=== PATIENT | female | born 1940 | race Caucasian/White ===

== ENCOUNTER → 2018-07-28 | Emergency (ER) | payer MEDICARE, OTHER | LOC: ED 23:47 ==

== ENCOUNTER 2019-04-01 14:51 | Emergency (ER) | payer MEDICARE, OTHER ==
[2019-04-01] MEDS ORDERED: BABY ASPIRIN 81 MG CHEW PO ONE (15:11)
[2019-04-01] MEDS ORDERED: Nitrostat 0.4 MG (ED) SL ONE (15:11)
[2019-04-01] MEDS ORDERED: DUONEB 0.5-3 MG/3 ml Neb IH ONE ×2 (15:17→15:31)
--- NOTE | 2019-04-01 15:18 | ERPHSYRPT ---
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 pt arrives pale, w/d resp easy a@ox3. Physician History: Pt is here with c/c of chest pain that migrated to the mid-epigastric region of the abdomen then to the RUQ. Pt took some tums and anothr stomach med but it did not help. Pt notes that the pain started today and she became weak and then was near syncopal when standing to go to Radiology. Pt rates her pain as moderate and notes that it started 1 hour after she had eaten. Timing/Duration: today Activities at Onset: other (had just eaten) Quality: aching, pressure, tightness Location: epigastric, abdomen Severity of Pain-Max: moderate Severity of Pain-Current: moderate Modifying Factors: Improves With: antacids Associated Symptoms: nausea, abdominal pain, syncope, No shortness of breath, No edema Prior Chest Pain/Cardiac Workup: no prior chest pain Nitro Today/Relief: no nitro taken today Aspirin Treatment Today: no aspirin today Allergies/Adverse Reactions: rosuvastatin [From Crestor] Allergy (Verified 04/01/19 15:14) rivaroxaban [From Xarelto] Adverse Reaction (Verified 04/01/19 15:14) Home Medications: Amlodipine Besylate 2.5 mg PO BID 04/01/19 [History] Apixaban [Eliquis 2.5 mg Tablet] 2.5 mg PO BID 04/01/19 [History] Atorvastatin Calcium 10 mg PO DAILY 04/01/19 [History] Metoprolol Succinate 25 mg Xl* [Toprol-Xl 25MG Tablets] 25 mg PO DAILY [History] Omeprazole 20 mg PO DAILY 04/01/19 [History] Sertraline HCl 50 mg [Zoloft 50 mg Tablet] 50 mg PO DAILY 04/01/19 [History] Hx Influenza Vaccination/Date Given: Yes (03/31) Hx Pneumococcal Vaccination/Date Given: (03/31) Immunizations Up to Date: Yes - Review of Systems Constitutional: Weakness Eyes: No Symptoms Ears, Nose, & Throat: No Symptoms Respiratory: No Symptoms Cardiac: Chest Pain, No Palpitations Abdominal/Gastrointestinal: Abdominal Pain, Nausea, No Vomiting, No Diarrhea Genitourinary Symptoms: No Symptoms, No Dysuria Musculoskeletal: No Symptoms Skin: No Symptoms Neurological: No Symptoms Psychological: No Symptoms Endocrine: No Symptoms Immunological/Allergic: No Symptoms - Past Medical History Pertinent Past Medical History: No Neurological History: No Pertinent History ENT History: No Pertinent History Cardiac History: High Cholesterol, Other Respiratory History: Asthma, COPD, Pulmonary Embolism Endocrine Medical History: No Pertinent History Musculoskeletal History: Osteoporosis GI Medical History: No Pertinent History History: No Pertinent History Psycho-Social History: Anxiety Other Medical History: 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 wright, leaky heart valve - Past Surgical History Past Surgical History: Yes Neuro Surgical History: No Pertinent History Cardiac: No Pertinent History Respiratory: No Pertinent History Gastrointestinal: Hernia Repair Genitourinary: No Pertinent History Musculoskeletal: No Pertinent History Female Surgical History: Hysterectomy Other Surgical History: Bladder tack, lumps removed from right breast benign - Social History Smoking Status: Never smoker Exposure to second hand smoke: No Drug Use: none Patient Lives Alone: No - Nursing Vital Signs Nursing Vital Signs: Initial Vital Signs Pulse Rate 66 04/01/19 14:58 Respiratory Rate 16 04/01/19 14:58 Blood Pressure 158/91 04/01/19 14:58 O2 Sat by Pulse Oximetry 97 04/01/19 14:58 Pain Scale Pain Intensity 5 - Physical Exam General Appearance: no apparent distress, lethargy Eye Exam: PERRL/EOMI, No scleral icterus Ears, Nose, Throat Exam: normal ENT inspection, TMs normal, pharynx normal, moist mucous membranes Neck Exam: normal inspection, supple, No carotid bruit Respiratory Exam: normal breath sounds, lungs clear, airway intact, No chest tenderness, No diminished breath sounds Cardiovascular Exam: regular rate/rhythm, normal heart sounds, No murmur, No friction rub, No gallop Gastrointestinal/Abdomen Exam: soft, normal bowel sounds, tenderness (mild RUQ) Pelvic Exam: not done Rectal Exam: not done Back Exam: normal inspection Extremity Exam: normal inspection, normal range of motion, pelvis stable Neurologic Exam: alert, oriented x 3, cooperative, patient day coordinator II-XII nml as tested, normal mood/affect Skin Exam: normal color, warm, dry, No rash SpO2: 97 O2 Delivery: Room Air - Course EKG Interpreted by Me: RATE (59), Sinus Rhythm, NORMAL AXIS, Non-specific ST Changes Ordered Tests: Active Orders 24 hr Category Date Time Status Graphic Editor STAT Care 04/01/19 15:13 Active EKG-ER Only STAT Care 04/01/19 15:11 Active CHEST 2 VIEWS (PA AND LAT) Stat Exams 04/01/19 15:13 Completed CHEST WITH CONTRAST [CT] Stat Exams 04/01/19 19:02 Taken GALLBLADDER [US] Stat Exams 04/01/19 16:25 Completed CBC W DIFF Stat Lab 04/01/19 15:10 Completed CK-Creatinine Phosphokinase Stat Lab 04/01/19 15:10 Completed CMP Stat Lab 04/01/19 15:10 Completed D-DIMER QUANTITATION Stat Lab 04/01/19 15:10 Completed NT PRO BNP Stat Lab 04/01/19 15:10 Completed PROTIME WITH INR Stat Lab 04/01/19 15:10 Completed PTT Stat Lab 04/01/19 15:10 Completed TROPONIN Q3H Lab 04/01/19 15:10 Completed TROPONIN Q3H Lab 04/01/19 18:15 Completed TROPONIN Q3H Lab 04/01/19 21:15 Ordered TROPONIN Q3H Lab 04/02/19 00:15 Ordered TROPONIN Q3H Lab 04/02/19 03:15 Ordered Respiratory Therapy Assessment DAILY RT 04/02/19 15:33 Active Medication Summary Discontinued Medications Generic Name Dose Route Start Last Admin Trade Name Freq PRN Reason Stop Dose Admin Albuterol/Ipratropium 3 ml 04/01/19 15:17 04/01/19 15:37 Duoneb 0.5-3 Mg/3 Ml Neb IH 04/01/19 15:18 3 ml STAT ONE Administration Albuterol/Ipratropium Confirm 04/01/19 15:31 Duoneb 0.5-3 Mg/3 Ml Neb Administered 04/01/19 15:32 Dose 3 ml IH .STK-MED ONE Aspirin 324 mg 04/01/19 15:11 04/01/19 15:20 Baby Aspirin 81 Mg Chew PO 04/01/19 15:12 324 mg STAT ONE Administration Hydromorphone HCl 0.5 mg 04/01/19 20:12 Hydromorphone 1 Mg/Ml Ampule IV 04/01/19 20:13 STAT ONE Nitroglycerin 0.4 mg 04/01/19 15:11 04/01/19 15:21 Nitrostat 0.4 Mg (Ed) SL 04/01/19 15:12 0.4 mg STAT ONE Administration Ondansetron HCl 4 mg 04/01/19 16:25 04/01/19 16:26 Zofran 4 Mg/2 Ml Vial IV 04/01/19 16:26 4 mg STAT ONE Administration Ondansetron HCl Confirm 04/01/19 16:25 Zofran 4 Mg/2 Ml Vial Administered 04/01/19 16:26 Dose 4 mg .ROUTE .STK-MED ONE Pantoprazole Sodium 40 mg 04/01/19 19:19 04/01/19 19:27 Protonix 40 Mg Iv IV 04/01/19 19:20 40 mg STAT ONE Administration Pantoprazole Sodium Confirm 04/01/19 19:24 Protonix 40 Mg Iv Administered 04/01/19 19:25 Dose 40 mg IV .STK-MED ONE Prochlorperazine Edisylate 10 mg 04/01/19 17:18 04/01/19 17:24 Compazine 10 Mg/2 Ml IV 04/01/19 17:19 10 mg STAT ONE Administration Prochlorperazine Edisylate Confirm 04/01/19 17:23 Compazine 10 Mg/2 Ml Administered 04/01/19 17:24 Dose 10 mg .ROUTE .STK-MED ONE Lab/Rad Data: Laboratory Result Diagrams 04/01/19 15:10 04/01/19 15:10 Laboratory Results 04/01/19 04/01/19 04/01/19 Range/Units 18:15 15:10 15:10 WBC (4.0-10.5) K/mm3 RBC (4.1-5.4) M/mm3 Hgb (12.0-16.0) gm/dl Hct (35-47) % MCV (78-100) fl MCH (26-32) pg MCHC (32-36) g/dl RDW (11.5-14.0) % Plt Count (150-450) K/mm3 MPV (6-9.5) fl Gran % (36.0-66.0) % Eos # (Auto) (0-0.5) Absolute Lymphs (auto) (1.0-4.6) Absolute Monos (auto) (0.0-1.3) Lymphocytes % (24.0-44.0) % Monocytes % (0.0-12.0) % Eosinophils % (0.00-5.0) % Basophils % (0.0-0.4) % Absolute Granulocytes (1.4-6.9) Basophils # (0-0.4) PT 13.5 H (9.95-12.35) SECONDS INR 1.19 (0.8-3.0) APTT 30.7 (25.3-37.0) SECONDS D-Dimer 531 H* (215-500) ng/mL Sodium (137-145) mmol/L Potassium (3.5-5.1) mmol/L Chloride (98-107) mmol/L Carbon Dioxide (22-30) mmol/L Anion Gap (5-15) MEQ/L BUN (7-17) mg/dL Creatinine (0.52-1.04) mg/dL Estimated GFR ML/MIN Glucose (74-106) mg/dL Calcium (8.4-10.2) mg/dL Total Bilirubin (0.2-1.3) mg/dL AST (14-36) U/L ALT (0-35) U/L Alkaline Phosphatase (38-126) U/L Creatine Kinase (30-135) U/L Troponin I < 0.012 < 0.012 (0.000-0.034) ng/mL NT-Pro-B Natriuret Pep (0-1800) pg/mL Serum Total Protein (6.3-8.2) g/dL Albumin (3.5-5.0) g/dL 04/01/19 04/01/19 Range/Units 15:10 15:10 WBC 13.5 H (4.0-10.5) K/mm3 RBC 4.36 (4.1-5.4) M/mm3 Hgb 13.8 (12.0-16.0) gm/dl Hct 41.7 (35-47) % MCV 95.6 (78-100) fl MCH 31.7 (26-32) pg MCHC 33.1 (32-36) g/dl RDW 12.8 (11.5-14.0) % Plt Count 258 (150-450) K/mm3 MPV 11.3 H (6-9.5) fl Gran % 84.8 H (36.0-66.0) % Eos # (Auto) 0.11 (0-0.5) Absolute Lymphs (auto) 1.34 (1.0-4.6) Absolute Monos (auto) 0.60 (0.0-1.3) Lymphocytes % 9.9 L (24.0-44.0) % Monocytes % 4.4 (0.0-12.0) % Eosinophils % 0.8 (0.00-5.0) % Basophils % 0.1 (0.0-0.4) % Absolute Granulocytes 11.44 H (1.4-6.9) Basophils # 0.01 (0-0.4) PT (9.95-12.35) SECONDS INR (0.8-3.0) APTT (25.3-37.0) SECONDS D-Dimer (215-500) ng/mL Sodium 142 (137-145) mmol/L Potassium 4.3 (3.5-5.1) mmol/L Chloride 106 (98-107) mmol/L Carbon Dioxide 28 (22-30) mmol/L Anion Gap 11.7 (5-15) MEQ/L BUN 18 H (7-17) mg/dL Creatinine 0.81 (0.52-1.04) mg/dL Estimated GFR > 60.0 ML/MIN Glucose 139 H (74-106) mg/dL Calcium 9.7 (8.4-10.2) mg/dL Total Bilirubin 0.70 (0.2-1.3) mg/dL AST 188 H (14-36) U/L ALT 74 H (0-35) U/L Alkaline Phosphatase 125 (38-126) U/L Creatine Kinase 64 (30-135) U/L Troponin I (0.000-0.034) ng/mL NT-Pro-B Natriuret Pep 183 (0-1800) pg/mL Serum Total Protein 6.6 (6.3-8.2) g/dL Albumin 4.1 (3.5-5.0) g/dL - Departure Departure Disposition: Transfer Clinical Impression: Choledocholithiasis, Chest pain, Elevated d-dimer Condition: Stable Critical Care Time: No Referrals: GREGOR BRAGG [Primary Care Provider] - Additional Instructions: Transfer to [facility] - Direct admission to the care of Summer Bragg.
[2019-04-01 15:26] LABS: Absolute Neutrophil Ct (ANC) 11.44 (1.4-6.9); BASOPHIL % 0.1 % (0.0-0.4); Basophil (Absolute #) 0.01 (0-0.4); Eosinophil % 0.8 % (0.00-5.0); Eosinophil (Absolute #) 0.11 (0-0.5); Hematocrit 41.7 % (35-47); Hemoglobin 13.8 gm/dl (12.0-16.0); Lymphocyte (Absolute #) 1.34 (1.0-4.6); Lymphocytes % 9.9 % (24.0-44.0); Mean Cell Volume 95.6 fl (78-100); Mean Corpuscular Hemoglobin 31.7 pg (26-32); Mean Corpuscular Hgb Concent. 33.1 g/dl (32-36); Mean Platelet Volume 11.3 fl (6-9.5); Monocytes % 4.4 % (0.0-12.0); Neutrophil % 84.8 % (36.0-66.0); Platelet Count 258 K/mm3 (150-450); Red Blood Count 4.36 M/mm3 (4.1-5.4); Red Cell Distribution Width 12.8 % (11.5-14.0); White Blood Count 13.5 K/mm3 (4.0-10.5)
[2019-04-01 15:48] LABS: INR 1.19 (0.8-3.0); PROTIME 13.5 SECONDS (9.95-12.35)
[2019-04-01 15:49] LABS: ALBUMIN 4.1 g/dL (3.5-5.0); ALKALINE PHOSPHATASE 125 U/L (38-126); ANION GAP 11.7 MEQ/L (5-15); BLOOD UREA NITROGEN 18 mg/dL (7-17); CHLORIDE 106 mmol/L (98-107); CK-Creatinine Phosphokinase 64 U/L (30-135); Calcium 9.7 mg/dL (8.4-10.2); Carbon Dioxide 28 mmol/L (22-30); Creatinine 1 0.81 mg/dL (0.52-1.04); Glucose 139 mg/dL (74-106); NT PRO BNP 183 pg/mL (0-1800); Potassium 4.3 mmol/L (3.5-5.1); SGOT/AST 188 U/L (14-36); SGPT/ALT 74 U/L (0-35); SODIUM 142 mmol/L (137-145); Total Protein 6.6 g/dL (6.3-8.2)
[2019-04-01 15:51] LABS: PTT 30.7 SECONDS (25.3-37.0)
--- NOTE | 2019-04-01 16:23 | XRAY ---
Indication: Lower chest pain and pressure. Short of breath. Comparison: August 06, 2013. PA/lateral chest remains clear. Heart and mediastinal structures within normal limits. Bony thorax intact again with mild osteopenia and degenerative changes. Impression: Stable nonacute chest with chronic bony features.
[2019-04-01] MEDS ORDERED: Zofran 4 MG/2 ML VIAL ONE (16:25)
[2019-04-01] MEDS ORDERED: Zofran 4 MG/2 ML VIAL IV ONE (16:25)
--- NOTE | 2019-04-01 16:35 | XRAY ---
Indication: Abdomen pain. Two-dimensional gallbladder sonogram performed. Comparison: None Gallbladder is mildly distended without gallstones, wall thickening, or pericholecystic fluid. Common bile duct measures 3.4 mm. No intrahepatic biliary distention. Remaining visualized liver, pancreas, and right kidney appear sonographically unremarkable. No organomegaly or ascites. Right kidney measures 8 cm in length. Impression: Mildly distended gallbladder in a otherwise negative gallbladder sonogram.
[2019-04-01] MEDS ORDERED: Compazine 10 MG/2 ML IV ONE (17:18)
[2019-04-01] MEDS ORDERED: Compazine 10 MG/2 ML ONE (17:23)
[2019-04-01] MEDS ORDERED: PROTONIX 40 MG IV IV ONE ×2 (19:19→19:24)
[2019-04-01] MEDS ORDERED: Hydromorphone 1 mg/ml Ampule IV ONE (20:12)
[2019-04-01] MEDS ORDERED: Hydromorphone 1 mg/ml Ampule ONE (20:55)
[2019-04-01 21:23] VITALS: BP 148/75; PULSE 74; O2SAT 95
--- NOTE | 2019-04-02 08:52 | XRAY ---
Indication: Upper abdomen and flank pain. Elevated d-dimer. Multiple contiguous axial images obtained through the chest using 80 cc Isovue 370 contrast and PE protocol. Comparison: None There is good opacification of the pulmonary arteries. However mild respiration artifact limits evaluation of the more distal lobar and segmental branches. No obvious pulmonary embolus. Heart is not enlarged. Aorta is normal in course and caliber. No pathologic mediastinal/hilar lymphadenopathy. Moderate-sized hiatal hernia. Examination of the lung parenchyma demonstrates bilateral scattered fibrosis/scarring. Right upper lobe demonstrates 1 cm apical and 4 mm peripheral indeterminant noncalcified nodules. No infiltrate or effusion. Bony thorax intact with mild osteopenia and mild degenerative changes of the lower thoracic spine. Limited upper abdomen demonstrates previous CT proven left adrenal adenoma. 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 Impression: 1. Pulmonary embolus evaluation limited by respiration artifact. No obvious pulmonary embolus. 2. Indeterminate right upper lobe noncalcified micronodules. Comparison studies would be of benefit if performed elsewhere. If not, recommend follow-up per Fleischner guidelines. 3. No acute cardiopulmonary abnormalities. 4. 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 Gallbladder sonogram may yield further information. 5. Incidental hiatal hernia and CT proven left adrenal adenoma. CT DI 21.21
== END 2019-04-01 21:16 | disposition short-term general hospital (02) ==
LOC: ED 14:51
DX: K80.50 Calculus of bile duct without cholangitis or cholecystitis without obstruction (principal); R07.9 Chest pain, unspecified; R79.89 Other specified abnormal findings of blood chemistry; E78.00 Pure hypercholesterolemia, unspecified; J44.9 Chronic obstructive pulmonary disease, unspecified; Z79.899 Other long term (current) drug therapy; J45.909 Unspecified asthma, uncomplicated; Z86.711 Personal history of pulmonary embolism; M81.0 Age-related osteoporosis without current pathological fracture; F41.9 Anxiety disorder, unspecified
CPT/HCPCS: 36000; 36415; 71046; 71260; 76705; 80053; 82550; 83880; 84484; 85025; 85379; 85610; 85730; 93005; 93041; 94640; 96374; 96375; 99285; J1170; J2405; A9270-GY

== ENCOUNTER 2022-01-16 19:22 | Emergency (ER) | payer MEDICARE, OTHER ==
[2022-01-16] MEDS ORDERED: Hydromorphone 1 mg/ml Injection IM ONE (20:13)
[2022-01-16] MEDS ORDERED: Norflex 60 MG/2 ML IM ONE (20:13)
[2022-01-16] MEDS ORDERED: ZOFRAN ODT 4 MG PO ONE (20:15)
[2022-01-16] MEDS ORDERED: solu-MEDROL 125 MG, Sterile H2O 10 ml 2 ML IM ONE ×2 (20:15)
--- NOTE | 2022-01-16 20:23 | ERPHSYRPT ---
- History of Present Illness Time Seen by Provider: 01/16/22 19:30 Patient Subjective Stated Complaint: pt states she has been having increasing lower back pain. today, back pain has been gong from lt lower back and coming arond the front of her lt thigh. states pain is 10/10 when up walking or when sitting up. Triage Nursing Assessment: pt alert and oriented, answers questions approp. pt arriv per ambulance and transfers to stretcher with assist of 4 with megamover. pt moves self well in bed. respirations nonlabored. skin pink warrm adn dry. pt able to move bilat lower ext well. denies los of sensation in lower ext. denies loss of bowel or bladder. Physician History: This is a 81-year-old white female patient of Dr. Summer Bragg who has a chronic back pain issues and a known T12 superior endplate fracture that is remote and present on a CAT scan that was performed in September 2021 with approximately 50 to 75% height loss. She has not had a fall since that time and an MRI of the thoracolumbar spine was performed approximately 1 to 2 weeks ago at [facility]. Again, the MRI shows an age-indeterminate anterior wedge compression fracture of T12 with approximately 80% height loss. In the lumbar spine, there is diffuse disc bulge throughout the lumbar levels. There no to mild degrees of spinal canal stenosis. She states she has not fallen since the MRI was performed. In the last 2 to 3 days she has noticed that she is having more pain in the left buttock and left anterior thigh area when sitting or standing. She has no urinary incontinence. She has no loss of bowel control. She only takes tramadol and she only has 2 tablets left. She did take an old cyclobenzaprine earlier today because she thought that might be helpful. Patient has an appointment with a back specialist on 01/22/2022 Timing/Duration: day(s) (2 to 3 days), intermittent, worse Method of Injury: other (No new injury) Quality: sharp, stabbing Back Pain Location: lumbar spine Back Pain Radiation: upper legs (On the left anteriorly) Severity of Pain-Max: moderate Severity of Pain-Current: moderate Associated Symptoms: lower back pain, No urinary incontinence, No loss of bowel control, No numbness in legs/feet, No sensory/motor loss Previous symptoms: same symptoms as today Allergies/Adverse Reactions: rosuvastatin [From Crestor] Allergy (Verified 01/16/22 20:10) rivaroxaban [From Xarelto] Adverse Reaction (Verified 01/16/22 20:10) Home Medications: Amlodipine Besylate 2.5 mg PO BID 04/01/19 [History] Apixaban [Eliquis 2.5 mg Tablet] 2.5 mg PO BID 04/01/19 [History] Atorvastatin Calcium 10 mg PO DAILY 04/01/19 [History] Metoprolol Succinate 25 mg Xl* [Toprol-Xl 25MG Tablets] 25 mg PO DAILY 04/01/19 [History] Omeprazole 20 mg PO DAILY 04/01/19 [History] Sertraline HCl 50 mg [Zoloft 50 mg Tablet] 50 mg PO DAILY 04/01/19 [History] Hx Tetanus, Diphtheria Vaccination/Date Given: No Hx Influenza Vaccination/Date Given: No Hx Pneumococcal Vaccination/Date Given: No Immunizations Up to Date: No Travel Risk - International Travel Have you traveled outside of the country in past 3 weeks: No - Coronavirus Screening Are you exhibiting any of the following symptoms?: No Close contact with a COVID-19 positive Pt in past 14-21 Days: No - Vaccine Status Have you recieved a Covid-19 vaccination: Yes Technical Assistance Consultant: [employer] - Vaccination Dates Date of 2cond Vaccination (if applicable): 2020 - Review of Systems Constitutional: No Symptoms Eyes: No Symptoms Ears, Nose, & Throat: No Symptoms Respiratory: No Symptoms Cardiac: No Symptoms Abdominal/Gastrointestinal: No Symptoms Genitourinary Symptoms: No Symptoms Musculoskeletal: Back Pain (Low thoracic and lumbar region) Skin: No Symptoms Neurological: No Symptoms Psychological: No Symptoms Endocrine: No Symptoms Hematologic/Lymphatic: No Symptoms Immunological/Allergic: No Symptoms All Other Systems: Reviewed and Negative - Past Medical History Pertinent Past Medical History: Yes Neurological History: No Pertinent History ENT History: No Pertinent History Cardiac History: High Cholesterol, Other Respiratory History: Asthma, COPD, Pulmonary Embolism Endocrine Medical History: No Pertinent History Musculoskeletal History: Osteoporosis GI Medical History: No Pertinent History History: No Pertinent History Psycho-Social History: Anxiety Other Medical History: 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 wright, leaky heart valve - Past Surgical History Past Surgical History: Yes Neuro Surgical History: No Pertinent History Cardiac: No Pertinent History Respiratory: No Pertinent History Gastrointestinal: Cholecystectomy, Hernia Repair Genitourinary: No Pertinent History Musculoskeletal: No Pertinent History Female Surgical History: Hysterectomy Other Surgical History: Bladder tack, lumps removed from right breast benign - Social History Smoking Status: Never smoker Exposure to second hand smoke: No Drug Use: none Patient Lives Alone: No - Nursing Vital Signs Nursing Vital Signs: Initial Vital Signs Temperature 97.2 F 01/16/22 19:24 Pulse Rate 61 01/16/22 19:24 Respiratory Rate 16 01/16/22 19:24 Blood Pressure 180/74 01/16/22 19:24 O2 Sat by Pulse Oximetry 99 01/16/22 19:24 Pain Scale Pain Intensity [Left Lower 3 Back] Pain Intensity 3 - Physical Exam General Appearance: no apparent distress, alert, anxiety, thin Eye Exam: PERRL/EOMI, eyes nml inspection Ears, Nose, Throat Exam: normal ENT inspection, moist mucous membranes Neck Exam: normal inspection, non-tender, supple, full range of motion Respiratory Exam: normal breath sounds, lungs clear, airway intact, No chest tenderness, No respiratory distress Cardiovascular Exam: regular rate/rhythm, normal heart sounds, normal peripheral pulses Gastrointestinal Exam: No tenderness Pelvic Exam: not done Rectal Exam: not done Back Exam: normal inspection, vertebral tenderness, decreased range of motion, muscle spasm, No CVA tenderness Extremity Exam: normal inspection, normal range of motion, pelvis stable Neurologic Exam: alert, oriented x 3, cooperative, superintendent mechanical II-XII nml as tested, normal mood/affect, nml station & gait (Hurts to stand and walk), sensation nml Skin Exam: normal color, warm, dry Lymphatic Exam: No adenopathy SpO2 Interpretation: normal SpO2: 99 O2 Delivery: Room Air - Course Nursing assessment & vital signs reviewed: Yes Ordered Tests: Medication Summary Discontinued Medications Generic Name Dose Route Start Last Admin Trade Name Freq PRN Reason Stop Dose Admin Methylprednisolone Sodium 0 mg 01/16/22 20:15 Succinate 125 mg/ Sterile IM 01/16/22 20:16 Water 2 ml STAT ONE Hydromorphone HCl 0.5 mg 01/16/22 20:13 Hydromorphone 1 Mg/1ml Inj 1 Mg/Ml Syringe IM 01/16/22 20:14 STAT ONE Ondansetron HCl 4 mg 01/16/22 20:15 Zofran 4 Mg/Udtablet Orally Disintegrating PO 01/16/22 20:16 STAT ONE Orphenadrine Citrate 60 mg 01/16/22 20:13 Orphenadrine Citrate 60 Mg/2 Ml Vial IM 01/16/22 20:14 STAT ONE - Progress Progress: improved Counseled pt/family regarding: diagnosis, need for follow-up - Departure Departure Disposition: Home Clinical Impression: Thoracic compression fracture, Bulging lumbar disc Condition: Stable Critical Care Time: No Referrals: GREGOR BRAGG [Primary Care Provider] - Follow up/PCP as directed Additional Instructions: Stop your tramadol and Flexeril. Follow-up with your primary care physician tomorrow morning as well as your back specialist in an attempt to obtain an earlier appointment. In addition, discuss your pain control regimen with them. Prescriptions: Oxycodone HCl/Acetaminophen [Percocet 5-325 mg Tablet] 1 each PO Q12H PRN PRN #6 tablet MDD 3 PRN Reason: Moderate To Severe Pain Prednisone 10 mg [Deltasone 10 mg] 10 mg PO TID #12 tablet Orphenadrine Citrate 100 mg [Norflex 100 MG Tablet] 100 mg PO BID #10 tab
[2022-01-16] MEDS ORDERED: Hydromorphone 1 mg/ml Injection ONE (20:27)
[2022-01-16] MEDS ORDERED: ZOFRAN ODT 4 MG ONE (20:27)
[2022-01-16] MEDS ORDERED: Norflex 60 MG/2 ML ONE (20:27)
[2022-01-16] MEDS ORDERED: Sterile H2O 10 ml IJ ONE (20:27)
[2022-01-16] MEDS ORDERED: solu-MEDROL ONE (20:28)
[2022-01-16] MEDS ORDERED: PERCOCET TABLET 5/325MG PO STA (20:29)
[2022-01-16] MEDS ORDERED: PERCOCET TABLET 5/325MG ONE (20:52)
[2022-01-16] MEDS ORDERED: Lidoderm Patch 5% TOP ONE (21:35)
[2022-01-16 22:23] VITALS: BP 147/86; PULSE 76; O2SAT 97
== END 2022-01-16 22:21 | disposition home or self-care (01) ==
LOC: ED 19:22
DX: S22.080D Wedge compression fracture of T11-T12 vertebra, subsequent encounter for fracture with routine healing (principal); M51.26 Other intervertebral disc displacement, lumbar region; E78.5 Hyperlipidemia, unspecified; J44.9 Chronic obstructive pulmonary disease, unspecified; Z79.01 Long term (current) use of anticoagulants; Z79.891 Long term (current) use of opiate analgesic; Z79.52 Long term (current) use of systemic steroids; Z79.899 Other long term (current) drug therapy
CPT/HCPCS: 96372; 99283; J1170; J2360; J2930; Q0162; A9270-GY

== ENCOUNTER 2023-11-26 13:47 | Day surgery (SDC) | payer MEDICARE, OTHER ==
[2023-11-26] MEDS ORDERED: Depo-Medrol 40 MG/ML IM ONE ×2 (13:48)
[2023-11-26] MEDS ORDERED: BUPIVACAINE 0.5% VIAL IJ ONE (13:48)
[2023-11-26] MEDS ORDERED: Lactated Ringers 1,000 ML IV ONE (15:50)
[2023-11-26] MEDS ORDERED: DIPRIVAN 200 MG/20 ML IV ONE (15:58)
--- NOTE | 2023-11-26 16:55 | XRAY ---
Indication: Right shoulder and subacromial bursa injection. Intraoperative fluoroscopy provided for 16 seconds. 2 digital spot images submitted for interpretation demonstrates needle tip projecting over the right glenohumeral joint superiorly. Second needle tip subacromial. Small amount of contrast injected for needle tip placement. Correlate with intraoperative findings/report.
--- NOTE | 2023-11-27 09:26 | XRAY ---
16 seconds of fluoroscopy was used in surgery for a right intra-articular shoulder and subacromial bursa injection.
== END 2023-11-26 16:25 | disposition home or self-care (01) ==
LOC: SDC-PAIN 13:47
PROVIDERS: ATTEND Psychiatry & Neurology Pain Medicine
DX: M19.011 Primary osteoarthritis, right shoulder (principal)
CPT/HCPCS: 20610; 73030; 77002; J1010; J2704; Q9966